=== PATIENT | male | born 1980 | race Caucasian/White ===

== ENCOUNTER 2018-12-15 09:26 | Emergency (ER) | payer OTHER ==
[2018-12-15 09:33] VITALS: BP 122/82; PULSE 82; TEMP 98.3; BMI 30.3
[2018-12-15] MEDS ORDERED: ACETAMINOPHEN 325 MG TABLET (FP) PO ONE (10:19)
[2018-12-15] MEDS ORDERED: guaiFENesin/CODEINE 10 ML UNIT-DOSE CUPS PO ONE (10:19)
[2018-12-15] MEDS ORDERED: ALBUTEROL SO4 2.5/IPRATROPIUM 0.5 INH SOL 3 ML VIAL.NEB. NEB ONE ×2 (10:19→10:30)
[2018-12-15] MEDS ORDERED: DEXAMETHASONE LIQUID 0.5 MG/5 ML PO ONE (10:19)
--- NOTE | 2018-12-15 10:20 | PDOC ---
History of Present Illness - General Chief Complaint: Respiratory Stated Complaint: SOB Time Seen by Provider: 12/15/18 09:35 History Source: Patient Exam Limitations: No Limitations Past History - Travel Traveled outside of the country in the last 30 days: No Close contact w/someone who was outside of country & ill: No - Past Medical History Allergies/Adverse Reactions: Allergies Allergy/AdvReac Type Severity Reaction Status Date / Time No Known Allergies Allergy Verified 12/15/18 09:33 Home Medications: Ambulatory Orders Albuterol Sulfate Inhaler - [Ventolin HFA Inhaler -] 1 - 2 inh PO Q4H #1 inhaler 12/15/18 Albuterol Sulfate Inhaler - [Ventolin HFA Inhaler -] 1 - 2 inh PO Q4H #1 inhaler 12/15/18 Guaifenesin AC [Robitussin AC] 10 ml PO HS #100 ml MDD 1 12/15/18 Guaifenesin AC [Robitussin AC] 10 ml PO HS #100 ml MDD 1 12/15/18 predniSONE [Deltasone -] 40 mg PO DAILY #8 tablet 12/15/18 predniSONE [Deltasone -] 40 mg PO DAILY #8 tablet 12/15/18 COPD: No - Suicide/Smoking/Psychosocial Hx Smoking History: Never smoked Hx Alcohol Use: Yes Drug/Substance Use Hx: No Review of Systems - Review of Systems Able to Perform ROS?: Yes Comments:: 12/15/18 12:38 CONSTITUTIONAL: Absent: fever, chills, diaphoresis, generalized weakness, malaise, loss of appetite HEENT: Present: rhiorrhea, nasal congestion Absent: throat pain, throat swelling, difficulty swallowing, mouth swelling, ear pain, eye pain, visual Changes CARDIOVASCULAR: Absent: chest pain, loss of consciousness, palpitations, irregular heart rate, peripheral edema RESPIRATORY: Present: cough Absent: cough, shortness of breath, dyspnea with exertion, orthopnea, wheezing, stridor, hemoptysis GASTROINTESTINAL: Absent: abdominal pain, abdominal distension, nausea, vomiting, diarrhea, constipation, melena, hematochezia GENITOURINARY: Absent: dysuria, frequency, urgency, hesitancy, hematuria, flank pain, genital pain MUSCULOSKELETAL: Absent: myalgia, arthralgia, joint swelling SKIN: Absent: rash, itching, pallor HEMATOLOGIC/IMMUNOLOGIC: Absent: easy bleeding, easy bruising, lymphadenopathy, frequent infections ENDOCRINE: Absent: unexplained weight gain, unexplained weight loss, heat intolerance, cold intolerance NEUROLOGIC: Absent: headache, focal weakness or paresthesias, dizziness, unsteady gait, seizure, mental status changes, bladder or bowel incontinence PSYCHIATRIC: Absent: anxiety, depression, suicidal or homicidal ideation, hallucinations. Is the patient limited Portuguese proficient: No *Physical Exam - Vital Signs Last Vital Signs Temp Pulse Resp BP Pulse Ox 98.3 F 82 16 122/82 95 12/15/18 09:29 12/15/18 09:29 12/15/18 09:29 12/15/18 09:29 12/15/18 09:29 - Physical Exam Comments: 12/15/18 12:49 GENERAL: Well developed, well nourished. Awake and alert. No acute distress. HEENT: Normocephalic, atraumatic. PERRLA, EOMI. No conjunctival pallor. Sclera are non- icteric. Moist mucous membranes. Oropharynx is clear. NECK: Supple. Full ROM. No JVD. Carotid pulses 2+ and symmetric, without bruits. No thyromegaly. No lymphadenopathy. CARDIOVASCULAR: Regular rate and rhythm. No murmurs, rubs, or gallops. Distal pulses are 2+ and symmetric. PULMONARY: No evidence of respiratory distress. Lungs clear to auscultation bilaterally. No wheezing, rales or rhonchi. ABDOMINAL: Soft. Non-tender. Non-distended. No rebound or guarding. No organomegaly. Normoactive bowel sounds. MUSCULOSKELETAL Normal range of motion at all joints. No bony deformities or tenderness. No CVA tenderness. EXTREMITIES: No cyanosis. No clubbing. No edema. No calf tenderness. SKIN: Warm and dry. Normal capillary refill. No rashes. No jaundice. NEUROLOGICAL: Alert, awake, appropriate. Cranial nerves 2-12 intact. No deficits to light touch and temperature in face, upper extremities and lower extremities. No motor deficits in the in face, upper extremities and lower extremities. Normoreflexic in the upper and lower extremities. Normal speech. Toes are down- going bilaterally. Gait is normal without ataxia. PSYCHIATRIC: Cooperative. Good eye contact. Appropriate mood and affect. ED Treatment Course - LABORATORY CBC & Chemistry Diagram: 12/15/18 11:15 12/15/18 11:15 Medical Decision Making - Medical Decision Making 12/15/18 12:50 The patient is a 38-year-old male past medical history of alcoholism, presents to the ER today for cough for one day. He states that the cough is wet and kept him up all night. He admits to associated chest tightness. He is also concerned about his basic labs he has not seen a doctor in years and he drinks every day. Denies fevers, chills, chest pain, shortness of breath on exertion, sore throat , earache, nausea, vomiting and diarrhea. A/P: Bronchitis On exam patient with tight lung sounds no wheezing rales or rhonchi. DuoNeb's, chest x-ray and steroids given. Chest x-ray negative for acute pathology. CBC and CMP unremarkable Patient feels better after medication. Will DC home with symptomatic relief. I discussed the physical exam findings, ancillary test results and final diagnoses with the patient. I answered all of the patient's questions. The patient was satisfied with the care received and felt comfortable with the discharge plan and treatment plan. The Patient agrees to follow up with the primary care physician/specialist within 24-72 hours. Return precautions were given. *DC/Admit/Observation/Transfer Diagnosis at time of Disposition: Bronchitis - Discharge Dispostion Disposition: HOME Condition at time of disposition: Stable Decision to Admit order: No - Prescriptions Prescriptions: Albuterol Sulfate Inhaler - [Ventolin HFA Inhaler -] 1 - 2 inh PO Q4H #1 inhaler Albuterol Sulfate Inhaler - [Ventolin HFA Inhaler -] 1 - 2 inh PO Q4H #1 inhaler Guaifenesin AC [Robitussin AC] 10 ml PO HS #100 ml MDD 1 Guaifenesin AC [Robitussin AC] 10 ml PO HS #100 ml MDD 1 predniSONE [Deltasone -] 40 mg PO DAILY #8 tablet predniSONE [Deltasone -] 40 mg PO DAILY #8 tablet - Referrals Referrals: Hamlet Nair MD [Staff Physician] - - Patient Instructions Printed Discharge Instructions: DI for Acute Bronchitis Additional Instructions: You have bronchitis Your chest x-ray was negative for pneumonia, your lab work was normal. Please use the inhaler every 4 hours for the next week to help with your cough. Continue taking the prednisone daily for the next 4 days. You may take the Robitussin with codeine at night before bed to help with your cough. Do not drive or drink alcohol after taking this medication as it may make you sleepy. Please follow up with your primary care doctor in 1 week if your symptoms are not improving. Return to the emergency department if you have fevers, chills, worsening cough, chest pain, worsening shortness of breath or if you have any changes in your symptoms. - Post Discharge Activity Forms/Work/School Notes: Back to Work
[2018-12-15] MEDS ORDERED: DEXAMETHASONE SOD PHOSPHATE 10 MG/1 ML VIAL ONE (10:29)
[2018-12-15] MEDS ORDERED: ACETAMINOPHEN 325 MG TABLET (FP) ONE (10:29)
[2018-12-15] MEDS ORDERED: guaiFENesin/CODEINE 5 ML UNIT-DOSE CUPS PO ONE (10:30)
[2018-12-15 11:34] LABS: BASO % 0.5 % (0-2.0); HEMATOCRIT 45.2 % (35.4-49); HEMOGLOBIN 15.5 GM/dL (11.7-16.9); MCH 31.3 pg (25.7-33.7); MCHC 34.4 g/dl (32.0-35.9); MEAN CELL VOLUME 91.1 fl (80-96); MEAN PLT VOLUME 7.8 fl (7.5-11.1); MONO % 10.2 % (3.8-10.2); NEUT % 54.3 % (42.8-82.8); PLATELET COUNT 234 K/MM3 (134-434); RBC 4.96 M/mm3 (4.00-5.60); WHITE BLOOD COUNT 8.8 K/mm3 (4.0-10.0)
[2018-12-15 12:05] LABS: ALBUMIN 3.9 g/dl (3.4-5.0); BILIRUBIN,TOTAL 0.4 mg/dL (0.2-1); BLOOD UREA NITROGEN 20.2 mg/dL (7-18); CALCIUM 8.9 mg/dL (8.5-10.1); CREATININE 1.1 mg/dL (0.55-1.3); TOT PROT 7.3 g/dl (6.4-8.2)
--- NOTE | 2018-12-15 14:40 | EKG ---
Test Reason : Blood Pressure : / mmHG Vent. Rate : 076 BPM Atrial Rate : 076 BPM P-R Int : 174 ms QRS Dur : 076 ms QT Int : 374 ms P-R-T Axes : 056 034 054 degrees QTc Int : 420 ms NORMAL SINUS RHYTHM NORMAL ECG NO PREVIOUS ECGS AVAILABLE Confirmed by Arnulfo Gandhi MD ([id number]) on 12/15/2018 2:39:37 PM Referred By: Confirmed By:Arnuflo Gandhi MD
== END 2018-12-15 13:01 | disposition home or self-care (01) ==
LOC: JERFT 09:26
PROC: 3E0F7GC Introduction of Other Therapeutic Substance into Respiratory Tract, Via Natural or Artificial Opening (ICD-10-PCS; principal; 2018-12-15)
DX: J20.9 Acute bronchitis, unspecified (principal)
CPT/HCPCS: 36415; 71046-TC-FY; 80053; 85025; 93005; 93010; 99281-25

== ENCOUNTER 2020-01-16 17:07 | Emergency (ER) | payer OTHER ==
[2020-01-16 17:17] VITALS: BP 118/82; PULSE 78; TEMP 98; BMI 31.6
--- OUTSIDE RECORDS SUMMARY | 2020-01-16 17:23 | XMS ---
:1980 [facility] Providers Name Role Phone [facility], MHAW9 Unavailable Unavailable Reza Mejia Unavailable [phone] ED STAFF PHYSICIAN, STAFF Unavailable Unavailable JOANN Paula Unavailable Unavailable JUAN MANUELGRANT ALVAREZ Unavailable Unavailable Grant Morales MD Unavailable Unavailable Grant Morales MD Unavailable Unavailable Re-disclosure Warning The records that you are about to access may contain information from federally- assisted alcohol or drug abuse programs. If such information is present, then the following federally mandated warning applies: This information has been disclosed to you from records protected by federal confidentiality rules (42 CFR part 2). The federal rules prohibit you from making any further disclosure of this information unless further disclosure is expressly permitted by the written consent of the person to whom it pertains or as otherwise permitted by 42 CFR part 2. A general authorization for the release of medical or other information is NOT sufficient for this purpose. The Federal rules restrict any use of the information to criminally investigate or prosecute any alcohol or drug abuse patient.The records that you are about to access may contain highly sensitive health information, the redisclosure of which is protected by Article 27-F of the [place] State Public Health law. If you continue you may haveaccess to information: Regarding HIV / AIDS; Provided by facilities licensed or operated by the [facility] Office of Mental Health; or Provided by the [facility] Office for People With Developmental Disabilities. If such information is present, then the following [facility] mandated warning applies: This information has been disclosed to you from confidential records which are protected by state law. State law prohibits you from making any further disclosure of this information without the specific written consent of the person to whom it pertains, or as otherwise permitted by law. Any unauthorized further disclosure in violation of state law may result in a fine or mcc sentence or both. A general authorization for the release of medical or other information is NOT sufficient authorization for further disclosure. Encounters Encounter Providers Location Date Indications Data Source(s ) Attender: Reza Positive 10/12/2019 [facility] ( [facility] Directions 09:45:00 AM [facility] EDT - Center) 10/12/2019 09:45:00 AM EDT Attender: Reza Positive 10/12/2019 [facility] ( [facility] Roberto Directions 09:24:00 AM [facility] EDT - [place]) 10/12/2019 09:24:00 AM EDT Outpatient Attender: GRANT Walters 10/11/2019 [facility] JUAN MANUEL 12:00:00 PM Medical John JERONIMOABAdmitter: EDT GRANT JUAN MANUEL GRANT Attender: Grant Positive 10/11/2019 [facility] ( [facility] Juan Manuel MD Directions 12:00:00 PM [facility] EDT - Center) 10/11/2019 12:00:00 PM EDT Emergency Attender: H 05/31/2019 [facility] MAGUIRE 06:03:00 PM Medical C enter AAttender: STAFF EST - ED STAFF 06/01/2019 PHYSICIANAdmitter 01:03:00 AM : JOANN MAGUIRE EST A Patient discharged. Outpatient Attender: MHAW9 HHHVCC 05/25/2019 01:45:28 PM I ([facility] EST [facility]) Patient admitted. 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, ABUSE, 12:00:00 PM Medical uncomplicated UNCOMPLICATED EDT Center F12.10 Cannabis abuse, CANNABIS ABUSE, Diagnosis 10/12/2019 Alexis Farias uncomplicated UNCOMPLICATED 12:00:00 PM Medical EDT Center F10.20 Alcohol ALCOHOL Diagnosis 10/12/2019 [facility] dependence, DEPENDENCE, 12:00:00 PM Medical uncomplicated UNCOMPLICATED EDT Center Y99.9 Unspecified UNSPECIFIED Diagnosis 05/31/2019 [facility] s external cause EXTERNAL CAUSE 06:03:00 PM Medic al status STATUS EST Center Y92.002 Bathroom of BATHRM OF UNSP Diagnosis 05/31/2019 [facility] ephs unspecified NON-INSTITUT 06:03:00 PM Medical non-institutional RESDNCE SNGL-FMLY EST Center (private) HOUSE PLACE residence single-family (private) house as the place of occurrence of the external cause Y93.89 Activity, other ACTIVITY, OTHER Diagnosis 05/31/2019 Alexis Farias specified SPECIFIED 06:03:00 PM Medical EST Center W19.XXXA Unspecified fall, UNSPECIFIED FALL, Diagnosis 05/31/2019 [facility] initial encounter INITIAL ENCOUNTER 06:03:00 PM Medical EST Center M54.9 Dorsalgia, DORSALGIA, Diagnosis 05/31/2019 [facility] unspecified UNSPECIFIED 06:03:00 PM Medical EST Center M25.561 Pain in right knee PAIN IN RIGHT KNEE Diagnosis 0 [facility] 06:03:00 PM Medical EST Center M25.521 Pain in right PAIN IN RIGHT Diagnosis 05/31/2019 [facility] nelson elbow ELBOW 06:03:00 PM Medical EST Center R04.2 Hemoptysis HEMOPTYSIS Diagnosis 05/31/2019 [facility] 06:03:00 PM Medical EST Center S50.311A Abrasion of right ABRASION OF RIGHT Diagnosis 05/31/2019 [facility] elbow, initial ELBOW, INITIAL 06:03:00 PM Medic al encounter ENCOUNTER EST Center F19.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 Diagnosis 0 [facility] substance abuse, SUBSTANCE ABUSE, 06:03:00 PM M edical uncomplicated UNCOMPLICATED EST Center Results ID Date Data Source Urinalysis.[id number] 05/31/2019 09:30:00 PM EST [facility] 0 Name Value Range Interpretation Description Data Sup porting Code Source(s) Document(s ) Color of Urine YELLOW <content Saint styleCode="Abby Colindress d">Color, Medical Urine Center </content>YELL OW <content styleCode="Soraida lics"> (YELLOW )</content> Ketones NEGATIVE <content [facility] [Mass/volume] styleCode="Abby Farias in Urine by d">Urine Medical Test strip Ketone Center </content>NEGA TIVE MG/DL<content styleCode="Soraida lics"> (NEGATIVE MG/DL)</conten t> UNK NEGATIVE <content Saint styleCode="Abby Jarrett d">Urine Medical Bilirubin Center </content>NEGA TIVE <content styleCode="Soraida lics"> (NEGATIVE )</content> UNK CLEAR <content Saint styleCode="Abby Jarrett d">Urine Medical Clarity Center </content>LISSETT R <content styleCode="Soraida lics"> (CLEAR )</content> Glucose NEGATIVE <content [facility] [Mass/volume] styleCode="Abby Colind[place] in Urine by d">Urine Medical Test strip Glucose Center </content>NEGA TIVE MG/DL<content styleCode="Soraida lics"> (NEGATIVE MG/DL)</conten t> Hemoglobin NEGATIVE <content [facility] [Presence] in styleCode="Abby Colindress Urine by Test d">Urine Blood Medical strip </content>NEGA Center TIVE <content styleCode="Soraida lics"> (NEGATIVE )</content> pH of Urine by 4.5-8.0 <content Saint Test strip styleCode="Abby Jarrett d">Urine pH Medical </content>8.0 Center <content styleCode="Soraida lics"> (4.5-8.0 )</content> Protein NEGATIVE <content Saint [Mass/volume] styleCode="Abby Colind[place] in Urine by d">Urine Medical Test strip Protein Center </content>NEGA TIVE MG/DL<content styleCode="Soraida lics"> (NEGATIVE MG/DL)</conten t> Urobilinogen 0.2-1.0 <content [facility] [Units/volume] styleCode="Abby Jarrett in Urine by d">Urine Medical Test strip Urobilinogen Center </content>0.2 MG/DL<content styleCode="Soraida lics"> (0.2-1.0 MG/DL)</conten t> Specific 1.015-1.02 <content Saint gravity of 5 styleCode="Abby Jarrett Urine by Test d">Urine Medical strip Specific Center Fiatt </content>1.01 5 <content styleCode="Soraida lics"> (1.015-1.025 )</content> Leukocyte NEGATIVE <content Saint esterase styleCode="Abby Jarrett [Presence] in d">Urine Medical Urine by Test Leukocyte Center strip </content>NEGA TIVE <content styleCode="Soraida lics"> (NEGATIVE )</content> Nitrite NEGATIVE <content Saint [Presence] in styleCode="Abby Colindress Urine by Test d">Urine Medical strip Nitrite Center </content>NEGA TIVE <content styleCode="Soraida lics"> (NEGATIVE )</content> ID Date Data Source MROUTINECCDA.[id number] 05/31/2019 09:30:00 PM [facility] -0500 Name Value Range Interpretation Description Data Sup porting Code Source(s) Document(s ) Cannabinoids <content Saint [Presence] in styleCode="Abby Colindress Urine by Screen d">Cannabinoid Medical method >50 ng/mL s Center </content>PRES UMPTIVE POSITIVE NG/ML (Reference Range: not available)<br/ > ID Date Data Source Liver 05/31/2019 08:20:[address] [facility] Profile.[id number] Name Value Range Interpretation Description Data Sup porting Code Source(s) Document(s ) Aspartate 17-59 <content [facility] aminotransferase styleCode="Bold"> Catarino hs [Enzymatic Aspartate Medical activity/volume] Aminotransferase Center in Serum or Plasma (AST) </content>41 IU/L<content styleCode="Italic s"> (17-59 IU/L)</content> Bilirubin.total 0.2-1.3 Below low <content [facility] [Mass/volume] in normal styleCode="Bold"> Catarino hs Serum or Plasma Bilirubin Total Medical </content>< 0.2 Center MG/DL L<content styleCode="Italic s"> (0.2-1.3 MG/DL)</content> Alkaline 38-126 <content [facility] phosphatase styleCode="Bold"> Jarrett [Enzymatic Alkaline Medical activity/volume] Phosphatase (ALP) Cente r in Serum or Plasma </content>78 IU/L<content styleCode="Italic s"> (38-126 IU/L)</content> Alanine 7-50 <content [facility] aminotransferase styleCode="Bold"> Catarino hs [Enzymatic Alanine Medical activity/volume] Aminotransferase Center in Serum or Plasma (ALT) </content>31 IU/L<content styleCode="Italic s"> (7-50 IU/L)</content> UNK 0.0-0.3 <content Saint styleCode="Bold"> Jarrett Bilirubin, Direct Medical </content>< 0.2 Center MG/DL<content styleCode="Italic s"> (0.0-0.3 MG/DL)</content> Albumin 3.5-5.0 <content [facility] [Mass/volume] in styleCode="Bold"> Catarino hs Serum or Plasma Albumin Medical </content>4.1 Center G/DL<content styleCode="Italic s"> (3.5-5.0 G/DL)</content> ID Date Data Source HematologyRou.[id number] 05/31/2019 08:20:00 PM EST [facility] 0500 Name Value Range Interpretation Description Data Sup porting Code Source(s) Document(s ) Leukocytes 4.4-11.0 Above high <content Saint [#/volume] in normal styleCode="Bold Jarrett Blood by ">White Blood Medical Automated count Cell Count Center </content>11.61 KCUMM H<content styleCode="Ital ics"> (4.4-11.0 KCUMM)</content > Erythrocytes 4.4-5.9 <content Saint [#/volume] in styleCode="Bold Jarrett Blood by ">Red Blood Medical Automated count Cell Count Center </content>5.15 MCUMM<content styleCode="Ital ics"> (4.4-5.9 MCUMM)</content > Erythrocyte mean 26.0-34. <content [facility] corpuscular 0 styleCode="Bold Jarrett hemoglobin ">Mean Medical [Entitic mass] Corposcular Center by Automated Hemoglobin count </content>29.7 PG<content styleCode="Ital ics"> (26.0-34.0 PG)</content> Hematocrit 41.0-53. <content Saint [Volume 0 styleCode="Bold Jarrett Fraction] of ">Hematocrit Medical Blood by </content>46.1 Center Automated count %<content styleCode="Ital ics"> (41.0-53.0 %)</content> Erythrocyte mean 80.0-100 <content [facility] corpuscular .0 styleCode="Bold Jarrett volume [Entitic ">Mean Medical volume] by Corpuscular Center Automated count Volume </content>89.5 FL<content styleCode="Ital ics"> (80.0-100.0 FL)</content> Hemoglobin 13.5-17. <content Saint [Mass/volume] in 5 styleCode="Bold Jarrett Blood ">Hemoglobin Medical </content>15.3 Center G/DL<content styleCode="Ital ics"> (13.5-17.5 G/DL)</content> UNK 0 <content Saint styleCode="Bold Jarrett ">Nucleated Red Medical Blood Cell Center </content>0.0 /100<content styleCode="Ital ics"> (0 /100)</content> Erythrocyte 11.5-14. <content Saint distribution 5 styleCode="Bold Jarrett width [Ratio] by ">Red Cell Medical Automated count Distribution Center Width </content>12.2 %<content styleCode="Ital ics"> (11.5-14.5 %)</content> Platelets 130-400 <content Saint [#/volume] in styleCode="Bold Jarrett Blood by ">Platelet Medical Automated count Count Center </content>247 KCUMM<content styleCode="Ital ics"> (130-400 KCUMM)</content > Erythrocyte mean 32.0-37. <content [facility] corpuscular 0 styleCode="Bold Jarrett hemoglobin ">Mean Corpus. Medical concentration Hgb Center [Mass/volume] by Concentration Automated count (MCHC) </content>33.2 G/DL<content styleCode="Ital ics"> (32.0-37.0 G/DL)</content> Platelet mean 8.0-11.0 <content Saint volume [Entitic styleCode="Bold Jarrett volume] in Blood ">Mean Platelet Medical by Automated Volume Center count </content>10.5 FL<content styleCode="Ital ics"> (8.0-11.0 FL)</content> UNK 0.0 <content Saint styleCode="Bold Jarrett ">Nucleated Red Medical Blood Cell Center Count </content>0.00 KCUMM<content styleCode="Ital ics"> (0.0 KCUMM)</content > ID Date Data Source GFR(Creatinine).[id number] 05/31/2019 08:20:00 PM EST [facility] 0-0500 Name Value Range Interpretation Code Description Data Barbara rce(s) Supporting Document(s ) UNK > 60 <content [facility] styleCode="Bold"> Medical Cent er EGFR </content>72 GFR<content styleCode="Italic s"> (> 60 GFR)</content> ID Date Data Source Coagulation 05/31/2019 08:20:00 PM [facility] ical Center Rout.[id number] EST Name Value Range Interpretation Description Data Sup porting Code Source(s) Document(s ) UNK 9.0-13.0 <content Saint styleCode="Bold" Jarrett >Protime Medical </content>10.3 Center SEC<content styleCode="Itali cs"> (9.0-13.0 SEC)</content> INR in 0.80-1.2 <content Saint Platelet poor 0 styleCode="Bold" Jarrett plasma by >INR Medical Coagulation </content>0.93 Center assay #<content styleCode="Itali cs"> (0.80-1.20 #)</content> aPTT in 25.1-36. <content [facility] Platelet poor 5 styleCode="Bold" Jarrett plasma by >Partial Medical Coagulation Thromboplastin Center assay Time </content>29.0 SEC<content styleCode="Itali cs"> (25.1-36.5 SEC)</content> ID Date Data Source CHMROUTINECCDA.[id number] 05/31/2019 08:20:00 PM [facility] -0500 Name Value Range Interpretation Description Data Sup porting Code Source(s) Document(s ) Lipase 23-300 <content [facility] Jarrett [Enzymatic styleCode="Bold Medical activity/vo ">Lipase Center lume] in </content>216 Serum or IU/L<content Plasma styleCode="Ital ics"> (23-300 IU/L)</content> UNK 30-110 <content [facility]rett styleCode="Bold Medical ">Amylase Center </content>88 IU/L<content styleCode="Ital ics"> (30-110 IU/L)</content> ID Date Data Source CardiacMarkers.[id number] 05/31/2019 08:20:00 PM [facility] -0500 Name Value Range Interpretation Description Data Sup porting Code Source(s) Document(s ) Troponin < 0.034 <content Saint I.cardiac styleCode="Bold Jarrett [Mass/volume ">Troponin I Medical ] in Serum </content>< Center or Plasma 0.012 NG/ML<content styleCode="Ital ics"> (< 0.034 NG/ML)</content > ID Date Data Source [facility].[id number] 05/31/2019 08:20:00 PM EST [facility] Name Value Range Interpretation Description Data Sup porting Code Source(s) Document(s ) Potassium 3.5-5.3 <content Saint [Moles/volume] in styleCode="Bold"> Gennaro phs Serum or Plasma Potassium Medical </content>4.0 Center MEQ/L<content styleCode="Italic s"> (3.5-5.3 MEQ/L)</content> Sodium 137-145 <content Saint [Moles/volume] in styleCode="Bold"> Gennaro phs Serum or Plasma Sodium Medical </content>139 Center MEQ/L<content styleCode="Italic s"> (137-145 MEQ/L)</content> Chloride 98-107 <content Saint [Moles/volume] in styleCode="Bold"> Gennaro phs Serum or Plasma Chloride Medical </content>104 Center MEQ/L<content styleCode="Italic s"> (98-107 MEQ/L)</content> Creatinine 0.5-1.3 <content [facility] [Mass/volume] in styleCode="Bold"> Catarino hs Serum or Plasma Creatinine Medical </content>1.2 Center MG/DL<content styleCode="Italic s"> (0.5-1.3 MG/DL)</content> Carbon dioxide, 22-30 <content Saint total styleCode="Bold"> Jarrett [Moles/volume] in Carbon Dioxide Medical Serum or Plasma </content>27 Center MEQ/L<content styleCode="Italic s"> (22-30 MEQ/L)</content> Glucose 74-106 Above high <content Saint [Mass/volume] in normal styleCode="Bold"> Catarino hs Serum or Plasma Glucose Medical </content>123 Center MG/DL H<content styleCode="Italic s"> (74-106 MG/DL)</content> UNK 9-20 Above high <content Saint normal styleCode="Bold"> Jarrett BUN </content>22 Medical MG/DL H<content Center styleCode="Italic s"> (9-20 MG/DL)</content> Calcium 8.4-10. <content Saint [Mass/volume] in 2 styleCode="Bold"> Catarino hs Serum or Plasma Calcium Medical </content>9.4 Center MG/DL<content styleCode="Italic s"> (8.4-10.2 MG/DL)</content> Alanine 7-50 <content [facility] aminotransferase styleCode="Bold"> Catarino hs [Enzymatic Alanine Medical activity/volume] Aminotransferase Center in Serum or Plasma (ALT) </content>31 IU/L<content styleCode="Italic s"> (7-50 IU/L)</content> UNK > 60 <content Saint styleCode="Bold"> Jarrett EGFR </content>72 Medical GFR<content Center styleCode="Italic s"> (> 60 GFR)</content> Aspartate 17-59 <content [facility] aminotransferase styleCode="Bold"> Catarino hs [Enzymatic Aspartate Medical activity/volume] Aminotransferase Center in Serum or Plasma (AST) </content>41 IU/L<content styleCode="Italic s"> (17-59 IU/L)</content> Alkaline 38-126 <content Saint phosphatase styleCode="Bold"> Jarrett [Enzymatic Alkaline Medical activity/volume] Phosphatase (ALP) Cente r in Serum or Plasma </content>78 IU/L<content styleCode="Italic s"> (38-126 IU/L)</content> Albumin 3.5-5.0 <content Saint [Mass/volume] in styleCode="Bold"> Catarino hs Serum or Plasma Albumin Medical </content>4.1 Center G/DL<content styleCode="Italic s"> (3.5-5.0 G/DL)</content> Bilirubin.total 0.2-1.3 Below low <content Saint [Mass/volume] in normal styleCode="Bold"> Catarino hs Serum or Plasma Bilirubin Total Medical </content>< 0.2 Center MG/DL L<content styleCode="Italic s"> (0.2-1.3 MG/DL)</content> Procedure Social History Code Duration Value Status Description Data Source(s ) Smoking 05/31/2019 Denies Ever completed Denies Ever Smoked [facility] 06:46:00 PM EST Smoked Medical C enter Smoking 05/31/2019 Denies Ever completed Denies Ever Smoked [facility] 06:20:00 PM EST Smoked Medical C enter Smoking 05/31/2019 Denies Ever completed Denies Ever Smoked [place] 06:15:00 PM EST Smoked Medical C enter Vital Signs ID Date Data Source UNK Name Value Range Interpretation Code Description Data Source(s) Body temperature 36.839687 36.509351 [facility] Respiratory rate 16 /min 16 /min [facility] Oxygen saturation 100 % 100 % [facility] osep in Arterial blood Medical Center by Pulse oximetry Heart rate 76 /min 76 /min [facility] Diastolic blood 75 mm[Hg] 75 mm[Hg] [facility] pressure Medical Center Systolic blood 112 mm[Hg] 112 mm[Hg] [facility] pressure Medical Center Body weight 95.639101 kg 95.970515 kg [facility] Measured Medical Center Body temperature 37.932526 37.997884 [facility] Respiratory rate 18 /min 18 /min [facility] Oxygen saturation 98 % 98 % [facility] in Arterial blood Medical Center by Pulse oximetry Heart rate 79 /min 79 /min [facility] Body height 180.851785 180.875937 cm [facility] cm Medical Center Diastolic blood 65 mm[Hg] 65 mm[Hg] [facility] pressure Medical Center Systolic blood 115 mm[Hg] 115 mm[Hg] [facility] pressure Medical Center Body mass index 29.2 kg/m2 29.2 kg/m2 [facility] (BMI) [Ratio] Medical Jose ter
[2020-01-16] MEDS ORDERED: diazePAM 5 MG TABLET PO ONE (17:37)
[2020-01-16] MEDS ORDERED: KETOROLAC TROMETHAMINE 30 MG/1 ML VIAL IM ONE (17:37)
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
[2020-01-16] MEDS ORDERED: diazePAM 5 MG TABLET ONE (18:03)
[2020-01-16] MEDS ORDERED: KETOROLAC TROMETHAMINE 30 MG/1 ML VIAL ONE (18:04)
== END 2020-01-16 19:00 | disposition home or self-care (01) ==
LOC: JERFT 17:07
PROC: 3E0233Z Introduction of Anti-inflammatory into Muscle, Percutaneous Approach (ICD-10-PCS; principal; 2020-01-16)
DX: M54.5 Low back pain (principal)
CPT/HCPCS: 71046-TC-FY; 72070-TC-FY; 99285-25